=== PATIENT | female | born 1980 | race Caucasian/White ===

== ENCOUNTER 2020-08-13 18:36 | Emergency (ER) | payer OTHER, SELFPAY ==
--- NOTE | 2020-08-13 19:43 | RAD REPORT ---
EXAM DESCRIPTION: CT - Stone Protocol - 08/13/2020 7:23 pm CLINICAL HISTORY: left flank pain COMPARISON: No comparisons TECHNIQUE: Axial 3 mm thick images were obtained without oral or IV contrast. The gudez-ka-ecsw span s the entirety of the system including uppermost abdomen and lung bases. All CT scans are performed using dose optimization technique as appropriate and may include automated exposure control or mA/KV adjustment according to patient size. FINDINGS: Mild hydronephrosis of the left side pelvis and calices present secondary to a 5 millimete r left UPJ stone. No other obstructing calculi. No right-sided hydronephrosis. Patient has moderate s everity bilateral medullary nephrocalcinosis No suspicious renal masses. Isodense masses and pyelonep hritis are not excluded on a stone protocol CT scan. No significant adrenal finding. No urinary bladd er suspicious finding. Lobulated uterus noted. No gross ovarian abnormality seen. Uterus and ovaries are isodense to adjacent non-opacified bowel limiting overall pelvic assessment. Imaged portions of the liver, spleen and pancreas show no suspicious findings on non-contrast imaging . No gallbladder or biliary tree abnormality identified. No suspicious bowel findings. Appendix is normal. Moderate stool volume seen throughout much of the c olon. No hernia, mass or bulky lymphadenopathy noted. Abdominal plasty surgical changes are evident. No blaire e air, free fluid or inflammatory stranding. No significant bony abnormality. IMPRESSION: Mild left-sided hydronephrosis secondary to a 5 mm left UPJ stone. Moderate severity bilateral medullary nephrocalcinosis. Isodense masses and pyelonephritis are not excluded on stone protocol technique. No acute GI process identifiable. Uterus is prominent and may contain small fibroids. Ovaries are not clearly distinguishable from the adjacent non-opacified isodense bowel.
[2020-08-13 19:54] LABS: Absolute Lymphocytes (CBC) 1.9 K/uL (0.7-4.9); Basophils % 0.5 % (0-1.3); Hematocrit 36.9 % (36.0-45.0); Lymphocytes % 14.4 % (15.3-44.8); MPV 9.3 fL (7.6-11.3); RBC Red Blood Cell Count 4.24 M/uL (3.86-4.86)
[2020-08-13] MEDS ORDERED: ONDANSETRON 4 MG/2 ML VIAL ONE (19:58)
[2020-08-13] MEDS ORDERED: KETOROLAC 30 MG/ML INJ ONE (19:58)
[2020-08-13] MEDS ORDERED: NA CHLORIDE 0.9% 1,000 ML ONE (19:59)
[2020-08-13 20:13] LABS: Urine Blood 3+ (NEG); Urine Glucose NEGATIVE (NEG); Urine Protein 1+ (NEG); Urine Specific Gravity >1.030 (1.005-1.030); Urine pH 6.5 (5.0-7.0)
[2020-08-13] MEDS ORDERED: TAMSULOSIN 0.4 MG SR CAP ONE (20:47)
[2020-08-13] MEDS ORDERED: MAGNESIUM SULFATE 1 gm IVPB 1 GM/100 ML BAG IV ONE (20:48)
[2020-08-13] MEDS ORDERED: CEFTRIAXONE/SWI 1gm 1 GM/10 ML SYR ONE (20:48)
[2020-08-13 21:05] LABS: ALT/SGPT 23 U/L (12-78); AST/SGOT 16 U/L (15-37); Albumin 4.2 g/dL (3.4-5.0); BUN Blood Urea Nitrogen 18 mg/dL (7-18); Bicarbonate 30 mmol/L (21-32); Bilirubin Direct < 0.1 mg/dL (0-0.2); Bilirubin Total 0.3 mg/dL (0.2-1.0); Glucose Level 145 mg/dL (74-106); Lipase 100 U/L (73-393); Potassium 4.6 mmol/L (3.5-5.1); Protein, Total 7.7 g/dL (6.4-8.2); Sodium Level 142 mmol/L (136-145)
[2020-08-13 21:06] LABS: Alkaline Phosphatase ND U/L (45-117)
[2020-08-13 21:26] LABS: Urine Bacteria <20 /HPF (<20); Urine Mucus 1+ /HPF (NONE SEEN); Urine RBC >50 /HPF (NONE SEEN)
--- NOTE | 2020-08-13 21:26 | ER ---
Nurse's Notes [facility] Name: Naomi Garcia Age: 40 yrs Sex: Female : 1980 Arrival Date: 08/13/2020 Time: 18:39 Bed 4 Private MD: Diagnosis: Calculus of ureter-left Presentation: 08/13 18:56 Chief complaint: Patient states: L flank pain for 1 day. + N/V. Coronavirus screen: ll1 Client denies travel out of the [place] in the last 14 days. At this time, the client does not indicate any symptoms associated with coronavirus-19. Ebola Screen: Patient denies travel to an Ebola-affected area in the 21 days before illness onset. Initial Sepsis Screen: Does the patient meet any 2 criteria? No. Patient's initial sepsis screen is negative. Does the patient have a suspected source of infection? Yes: Acute abdominal pain. Risk Assessment: Do you want to hurt yourself or someone else? Patient reports no desire to harm self or others. Onset of symptoms was August 13, 2020. 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 - Social history:: Smoking status: Patient denies any tobacco usage or history of. Screenin:15 Abuse screen: Denies threats or abuse. Denies injuries from another. Nutritional wh screening: No deficits noted. Tuberculosis screening: No symptoms or risk factors identified. Fall Risk None identified. Assessment: 19:15 General: Appears in no apparent distress. uncomfortable, Behavior is calm, cooperative, wh appropriate for age. Pain: Complains of pain in left lower quadrant Pain radiates to back Pain currently is 5 out of 10 on a pain scale. Neuro: Level of Consciousness is awake, alert, obeys commands, Oriented to person, place, time, situation, Appropriate for age. Cardiovascular: Heart tones S1 S2. Respiratory: Airway is patent Respiratory effort is even, unlabored, Respiratory pattern is regular, symmetrical, Breath sounds are clear bilaterally. GI: Bowel sounds present X 4 quads. Abd is soft and non tender X 4 quads. Reports lower abdominal pain, nausea. : No signs and/or symptoms were reported regarding the genitourinary system. EENT: No signs and/or symptoms were reported regarding the EENT system. Derm: Skin is intact, is healthy with good turgor, Skin is pink, warm \T\ dry. normal. Musculoskeletal: Circulation, motion, and sensation intact. 20:15 Reassessment: Patient appears in no apparent distress at this time. No changes from previously documented assessment. Patient and/or family updated on plan of care and expected duration. Pain level reassessed. Patient is alert, oriented x 3, equal unlabored respirations, skin warm/dry/pink. 21:30 Reassessment: Patient appears in no apparent distress at this time. Patient and/or wh family updated on plan of care and expected duration. Pain level reassessed. Patient is alert, oriented x 3, equal unlabored respirations, skin warm/dry/pink. Vital Signs: 18:56 BP 126 / 81; Pulse 61; Resp 16; Temp 97.7; Pulse Ox 98% ; Weight 58.97 kg; Height 5 ft. ll1 0 in. (152.40 cm); Pain 10/10; 20:00 BP 132 / 86; Pulse 91; Resp 18; Pulse Ox 98% on R/A; wh 21:30 BP 126 / 89; Pulse 84; Resp 18; Pulse Ox 99% on R/A; wh 18:56 Body Mass Index 25.39 (58.97 kg, 152.40 cm) ll1 ED Course: 18:39 Patient arrived in ED. mr 18:57 Triage completed. ll1 18:57 Arm band placed on. ll1 18:59 Cali Pal PA is PHCP. cp 18:59 Cali Quintero MD is Attending Physician. cp 19:14 Blake Burton, POLLO is Primary Nurse. wh 19:15 Patient has correct armband on for positive identification. Placed in gown. Bed in low wh position. Call light in reach. Side rails up X 1. Pulse ox on. NIBP on. 19:23 CT Stone Protocol In Process Unspecified. EDMS 19:45 Inserted saline lock: 20 gauge in left antecubital area, using aseptic technique. Blood wh collected. 21:24 Yg Rojas MD is Referral Physician. 21:43 No provider procedures requiring assistance completed. IV discontinued, intact, bleeding controlled, No redness/swelling at site. Administered Medications: 20:10 Drug: NS 0.9% 1000 ml Route: IV; Rate: 1 bolus; Site: left antecubital; 21:45 Follow up: Response: No adverse reaction; IV Status: Completed infusion 20:12 Drug: TORadol - Ketorolac 15 mg Route: IVP; Site: left antecubital; 21:44 Follow up: Response: No adverse reaction; Pain is decreased 20:14 Drug: Zofran (Ondansetron) 4 mg Route: IVP; Site: left antecubital; 21:45 Follow up: Response: No adverse reaction; Nausea is decreased 20:31 Drug: Flomax 0.4 mg Route: PO; 21:44 Follow up: Response: No adverse reaction 20:33 Drug: Rocephin - (cefTRIAXone) 1 grams Route: IVPB; Infused Over: 30 mins; Site: left antecubital; 21:44 Follow up: Response: No adverse reaction; IV Status: Completed infusion 20:35 Drug: Magnesium Sulfate 1 grams Route: IVPB; Infused Over: 1 hrs; Site: left antecubital; 21:44 Follow up: Response: No adverse reaction; IV Status: Completed infusion Outcome: 21:25 Discharge ordered by . 21:43 Discharged to home ambulatory. 21:43 Condition: stable 21:43 Discharge instructions given to patient, Instructed on discharge instructions, follow up and referral plans. no drinking with medication, no driving heavy equipment, medication usage, POC Demonstrated understanding of instructions, follow-up care, medications, POC Prescriptions given X 4. 21:45 Patient left the ED. Signatures: Dispatcher [employer] CLEMENTEPA Tiffanie Gomes Corey, PA PA cp Blake Burton RN RN Leonard Yost RN RN ll1
--- NOTE | 2020-08-13 21:26 | EDPHYS ---
Physician Documentation [facility] Name: Naomi Garcia Age: 40 yrs Sex: Female : 1980 Arrival Date: 08/13/2020 Time: 18:39 Bed 4 Private MD: CLEMENTE Physician Cali Quintero HPI: 08/13 19:15 This 40 yrs old Female presents to ER via Ambulatory with complaints of cp Abdominal Pain, Back Pain. 19:15 The patient complains of pain in the left flank. The pain does not radiate. Onset: The cp symptoms/episode began/occurred suddenly, today. 19:15 Associated signs and symptoms: Pertinent positives: nausea, Pertinent negatives: cp diarrhea, fever, pain radiating to the lower extremities. Severity of pain: in the emergency department the pain is unchanged despite home interventions. The patient has not experienced similar symptoms in the past. 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 - Social history:: Smoking status: Patient denies any tobacco usage or history of. ROS: 19:20 Back: Positive for flank pain, on the left. cp 19:20 Eyes: Negative for injury, pain, redness, and discharge. cp 19:20 Constitutional: Negative for body aches, chills, fever. 19:20 Respiratory: Negative for cough, shortness of breath, wheezing. 19:20 Abdomen/GI: Positive for nausea, Negative for diarrhea, constipation, active vomiting. 19:20 : Negative for urinary symptoms. 19:20 Neuro: Negative for altered mental status, headache, weakness. 19:20 All other systems are negative. Exam: 19:25 Head/Face: Normocephalic, atraumatic. cp 19:25 Constitutional: The patient appears in no acute distress, alert, awake, non-toxic, well developed, well nourished, uncomfortable. 19:25 Eyes: Periorbital structures: appear normal, Conjunctiva: normal, no exudate, no injection, Sclera: no appreciated abnormality, Lids and lashes: appear normal, bilaterally. 19:25 ENT: External ear(s): are unremarkable, Nose: is normal, Mouth: Lips: moist, Oral mucosa: moist, Posterior pharynx: Airway: no evidence of obstruction, patent. 19:25 Chest/axilla: Inspection: normal, Palpation: is normal, no crepitus, no tenderness. 19:25 Cardiovascular: Rate: normal. 19:25 Respiratory: the patient does not display signs of respiratory distress, Respirations: normal, no use of accessory muscles, no retractions, labored breathing, is not present. 19:25 Abdomen/GI: Inspection: abdomen appears normal, Palpation: soft, in all quadrants, mild abdominal tenderness, in the posterior aspect of left lateral abdomen, anterior aspect of left lateral abdomen and left lower quadrant, rebound tenderness, is not appreciated, involuntary guarding, is not appreciated. 19:25 Skin: no rash present. Vital Signs: 18:56 BP 126 / 81; Pulse 61; Resp 16; Temp 97.7; Pulse Ox 98% ; Weight 58.97 kg; Height 5 ft. ll1 0 in. (152.40 cm); Pain 10/10; 20:00 BP 132 / 86; Pulse 91; Resp 18; Pulse Ox 98% on R/A; wh 21:30 BP 126 / 89; Pulse 84; Resp 18; Pulse Ox 99% on R/A; wh 18:56 Body Mass Index 25.39 (58.97 kg, 152.40 cm) ll1 MDM: 19:02 Patient medically screened. cp 20:00 Differential diagnosis: nephrolithiasis, pyelonephritis, UTI, diverticulitis. 21:25 Data reviewed: vital signs, nurses notes, lab test result(s), radiologic studies, CT cp scan. 21:25 Counseling: I had a detailed discussion with the patient and/or guardian regarding: the historical points, exam findings, and any diagnostic results supporting the discharge/admit diagnosis, lab results, radiology results, to return to the emergency department if symptoms worsen or persist or if there are any questions or concerns that arise at home. Response to treatment: the patient's symptoms have markedly improved after treatment, VSS. Pain markedly improved with meds. Will discharge to home for continued monitoring. 08/13 19:11 Order name: Basic Metabolic Panel 08/13 19:11 Order name: CBC with Diff; Complete Time: 20:51 cp 08/13 19:11 Order name: Hepatic Function; Complete Time: 21:22 cp 08/13 19:11 Order name: Lipase; Complete Time: 21:22 cp 08/13 19:11 Order name: Urine Microscopic Only cp 08/13 19:12 Order name: Basic Metabolic Panel; Complete Time: 21:22 EDMS 08/13 19:11 Order name: CT Stone Protocol; Complete Time: 19:54 cp 08/13 20:06 Order name: Urine Dipstick--Ancillary (enter results); Complete Time: 20:51 mw2 08/13 20:06 Order name: Urine --Ancillary (enter results); Complete Time: 20:51 mw2 08/13 19:11 Order name: IV Saline Lock; Complete Time: 20:08 cp 08/13 19:11 Order name: Labs collected and sent; Complete Time: 20:08 cp 08/13 19:11 Order name: Urine Dipstick-Ancillary (obtain specimen); Complete Time: 20:08 cp 08/13 19:11 Order name: Urine Test (obtain specimen); Complete Time: 20:08 cp Administered Medications: 20:10 Drug: NS 0.9% 1000 ml Route: IV; Rate: 1 bolus; Site: left antecubital; 21:45 Follow up: Response: No adverse reaction; IV Status: Completed infusion 20:12 Drug: TORadol - Ketorolac 15 mg Route: IVP; Site: left antecubital; 21:44 Follow up: Response: No adverse reaction; Pain is decreased wh 20:14 Drug: Zofran (Ondansetron) 4 mg Route: IVP; Site: left antecubital; 21:45 Follow up: Response: No adverse reaction; Nausea is decreased wh 20:31 Drug: Flomax 0.4 mg Route: PO; wh 21:44 Follow up: Response: No adverse reaction 20:33 Drug: Rocephin - (cefTRIAXone) 1 grams Route: IVPB; Infused Over: 30 mins; Site: left antecubital; 21:44 Follow up: Response: No adverse reaction; IV Status: Completed infusion 20:35 Drug: Magnesium Sulfate 1 grams Route: IVPB; Infused Over: 1 hrs; Site: left antecubital; 21:44 Follow up: Response: No adverse reaction; IV Status: Completed infusion Disposition: 03/18 06:49 Co-signature as Attending Physician, Cali Quintero MD I agree with the assessment and [facility] plan of care. Disposition: 08/13/20 21:25 Discharged to Home. Impression: Calculus of ureter - left. - Condition is Stable. - Discharge Instructions: Kidney Stones, Renal Colic. - Prescriptions for Keflex 500 mg Oral Capsule - take 1 capsule by ORAL route every 8 hours for 7 days; 21 capsule. Tylenol- Codeine #3 300-30 mg Oral Tablet - take 2 tablets by ORAL route every 4-6 hours As needed; 20 tablet. Zofran 4 mg Oral Tablet - take 1 tablet by ORAL route every 12 hours As needed; 20 tablet. Flomax 0.4 mg Oral Capsule, Sust. Release 24 hr - take 1 capsule by ORAL route once daily As needed 1/2 hour following the same meal each day; 7 capsule. - Medication Reconciliation Form, Thank You Letter, Antibiotic Education, Prescription Opioid Use, Work release form form. - Follow up: Yg Rojas MD; When: 2 - 3 days; Reason: pain continues. - Problem is new. - Symptoms have improved. Signatures: Dispatcher [employer] EDMS Cali Quintero MD MD cha Page, Corey, PA PA cp Blake Burton RN RN Leonard Yost RN RN ll1 Corrections: (The following items were deleted from the chart) 08/13 21:45 21:25 08/13/2020 21:25 Discharged to Home. Impression: Calculus of ureter - left. Condition is Stable. Forms are Medication Reconciliation Form, Thank You Letter, Antibiotic Education, Prescription Opioid Use. Follow up: Yg Rojas; When: 2 - 3 days; Reason: pain continues. Problem is new. Symptoms have improved. cp
[2020-08-13 22:09] VITALS: TEMP 97.7
[2020-08-13 22:11] VITALS: BP 126/89; O2SAT 99
== END 2020-08-13 21:45 | disposition home or self-care (01) ==
LOC: ER 18:36
DX: N13.2 Hydronephrosis with renal and ureteral calculous obstruction (principal)
CPT/HCPCS: 96365; 85025; 80048; 36415; 81025; 80076; 83690; 76377; 74176; 96375; 99284; J3475; J0696; J7030; J2405; 81003; 81015

== ENCOUNTER 2020-08-17 18:50 | Emergency (ER) | payer OTHER ==
[2020-08-17] MEDS ORDERED: ONDANSETRON 4 MG/2 ML VIAL ONE (19:44)
[2020-08-17] MEDS ORDERED: KETOROLAC 30 MG/ML INJ ONE (19:44)
[2020-08-17] MEDS ORDERED: NA CHLORIDE 0.9% 1,000 ML ONE (19:44)
[2020-08-17 19:53] LABS: Absolute Lymphocytes (CBC) 1.8 K/uL (0.7-4.9); Basophils % 0.6 % (0-1.3); Hematocrit 39.6 % (36.0-45.0); Lymphocytes % 12.8 % (15.3-44.8); RBC Red Blood Cell Count 4.54 M/uL (3.86-4.86)
--- NOTE | 2020-08-17 20:39 | RAD REPORT ---
EXAM DESCRIPTION: CT - Stone Protocol - 08/17/2020 8:01 pm CLINICAL HISTORY: Abdominal pain. COMPARISON: August 13, 2020 TECHNIQUE: Computed axial tomography of the abdomen pelvis was obtained without oral or IV contrast. Lack of IV and oral contrast limits evaluation of solid organs, bowel, and vessels. Coronal reformat david images were obtained and reviewed. All CT scans are performed using dose optimization technique as appropriate and may include automated exposure control or mA/KV adjustment according to patient size. FINDINGS: 5 millimeter calculus within proximal left ureter. Hounsfield unit 1123. Bilateral renal c alculi are present. Medullary sponge kidney suspected. Mild left hydronephrosis is present. The liver, spleen, pancreas and adrenals appear grossly normal There is no evidence of diverticulitis. The appendix appears normal IMPRESSION: 5 millimeter calculus proximal left ureter resulting in mild left hydronephrosis
--- NOTE | 2020-08-17 20:50 | EDPHYS ---
Physician Documentation [facility] Name: Naomi Garcia Age: 40 yrs Sex: Female : 1980 Arrival Date: 08/17/2020 Time: 18:52 Bed 18 Private MD: ED Physician Andrew Lu HPI: 08/17 20:33 This 40 yrs old Female presents to ER via Ambulatory with complaints of kb Kidney Stone- hasnt passed. 20:33 The patient complains of pain in the left flank. The pain radiates to the left lower kb quadrant. Onset: The symptoms/episode began/occurred 5 day(s) ago. Modifying factors: The symptoms are alleviated by nothing. the symptoms are aggravated by nothing. Associated signs and symptoms: The patient has no apparent associated signs or symptoms. Severity of pain: At its worst the pain was severe in the emergency department the pain is unchanged. The patient has not experienced similar symptoms in the past. The patient has been recently seen at the [facility] Emergency Department, last week, for similar complaints labs were performed, CT scan was performed. Pt reports left flank pain that started 5 days ago. Was seen here and diagnosed with a 5mm stone in the left UPJ 4 days ago. States the pain started getting worse yesterday and radiating to LLQ. Denies urinary symptoms, fever. . 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 - Social history:: Smoking status: unknown. ROS: 20:32 Constitutional: Negative for fever, chills, and weight loss, Cardiovascular: Negative kb for chest pain, palpitations, and edema, Respiratory: Negative for shortness of breath, cough, wheezing, and pleuritic chest pain, MS/Extremity: Negative for injury and deformity, Skin: Negative for injury, rash, and discoloration, Neuro: Negative for headache, weakness, numbness, tingling, and seizure. 20:32 Abdomen/GI: Positive for abdominal pain. 20:32 Back: Positive for flank pain, on the left. 20:32 : Negative for urinary symptoms. Exam: 20:32 Constitutional: This is a well developed, well nourished patient who is awake, alert, kb and in no acute distress. Head/Face: Normocephalic, atraumatic. Cardiovascular: Regular rate and rhythm with a normal S1 and S2. No gallops, murmurs, or rubs. No pulse deficits. Respiratory: Respirations even and unlabored. No increased work of breathing, no retractions or nasal flaring. Abdomen/GI: Soft, non-tender. No distention Skin: Warm, dry with normal turgor. Normal color. MS/ Extremity: Pulses equal, no cyanosis. Neurovascular intact. Full, normal range of motion. Neuro: Awake and alert, GCS 15, oriented to person, place, time, and situation. Moves all extremities. Normal gait. 20:32 Back: pain, that is moderate, of the left flank, CVA tenderness, that is moderate, is noted on the left. Vital Signs: 19:20 BP 136 / 97; Pulse 90; Resp 19; Temp 99.2; Pulse Ox 99% ; Weight 58.97 kg; Height 5 ft. rr5 0 in. (152.40 cm); Pain 7/10; 21:00 BP 131 / 70; Pulse 85; Resp 16; Pulse Ox 98% ; rr5 22:14 BP 125 / 75; Pulse 80; Resp 19; Pulse Ox 100% ; rr5 19:20 Body Mass Index 25.39 (58.97 kg, 152.40 cm) rr5 MDM: 19:09 Patient medically screened. kb 20:31 Data reviewed: vital signs, nurses notes. Data interpreted: Pulse oximetry: on room air kb is 99 %. Interpretation: normal. Counseling: I had a detailed discussion with the patient and/or guardian regarding: the historical points, exam findings, and any diagnostic results supporting the discharge/admit diagnosis, lab results, radiology results, the need for outpatient follow up, a urologist, to return to the emergency department if symptoms worsen or persist or if there are any questions or concerns that arise at home. 20:48 ED course: Discussed findings with pt. Pt will call urologist first thing tomorrow. kb Pain is controlled after toradol. . 08/17 19:16 Order name: Basic Metabolic Panel; Complete Time: 20:10 kb 08/17 19:16 Order name: CBC with Diff; Complete Time: 20:14 kb 08/17 19:16 Order name: CT Stone Protocol; Complete Time: 20:40 kb 08/17 19:16 Order name: IV Saline Lock; Complete Time: 19:32 kb 08/17 19:16 Order name: Labs collected and sent; Complete Time: 19:32 kb Administered Medications: 19:45 Drug: NS 0.9% 1000 ml Route: IV; Rate: 1000 ml; Site: right antecubital; rr5 20:30 Follow up: Response: No adverse reaction; IV Status: Completed infusion; IV Intake: rr5 1000ml 19:45 Drug: Zofran (Ondansetron) 4 mg Route: IVP; Site: right antecubital; rr5 21:00 Follow up: Response: No adverse reaction rr5 19:48 Drug: TORadol 30 mg Route: IVP; Site: right antecubital; rr5 21:00 Follow up: Response: No adverse reaction; Pain is unchanged, physician notified rr5 20:59 Drug: Magnesium Sulfate 1 grams Route: IVPB; Infused Over: 30 mins; Site: right rr5 antecubital; 22:15 Follow up: Response: No adverse reaction; IV Status: Completed infusion; IV Intake: rr5 100ml 20:59 Drug: Ackerly 10 mg-325 mg 1 tabs {Note: rass 0.} Route: PO; rr5 22:15 Follow up: Response: No adverse reaction; Pain is decreased; RASS: Alert and Calm (0) rr5 Disposition: 08/18 05:05 Co-signature as Attending Physician, Andrew Lu MD. 7 Disposition: 08/17/20 20:50 Discharged to Home. Impression: Calculus of ureter. - Condition is Stable. - Discharge Instructions: Kidney Stones, [id number]. - Prescriptions for Tylenol- Codeine #3 300-30 mg Oral Tablet - take 2 tablets by ORAL route every 4-6 hours As needed; 16 tablet. Diclofenac Sodium 75 mg Oral Tablet, Delayed Release (E.C.) - take 1 tablet by ORAL route 2 times per day As needed; 30 tablet. - Work release form, Medication Reconciliation Form, Thank You Letter, Antibiotic Education, Prescription Opioid Use form. - Follow up: Emergency Department; When: As needed; Reason: Worsening of condition. Follow up: Private Physician; When: 2 - 3 days; Reason: Recheck today's complaints, Continuance of care, Re-evaluation by your physician. Follow up: Dom Anglin MD; When: Tomorrow; Reason: Recheck today's complaints. Follow up: Yg Rojas MD; When: Tomorrow; Reason: Recheck today's complaints. Signatures: Dispatcher [employer] EDMS Kenia Blackman, TECHNICAL PROGRAM MANAGER-C TECHNICAL PROGRAM MANAGER-CkMigue Villed[place], RN RN rr5 Andrew Lu MD MD [id number] Corrections: (The following items were deleted from the chart) 08/17 20:36 20:33 Pt reports left flank pain that started 5 days ago. Was seen here and diagnosed kb with a 5mm stone in [facility] 4 days ago. States the pain started getting worse yesterday and radiating to LLQ. Denies urinary symptoms, fever. . kb 22:16 20:50 08/17/2020 20:50 Discharged to Home. Impression: Calculus of ureter. Condition is rr5 Stable. Discharge Instructions: Kidney Stones, [id number]. Prescriptions for Tylenol-Codeine #3 300-30 mg Oral Tablet - take 2 tablets by ORAL route every 4-6 hours As needed; 16 tablet, Diclofenac Sodium 75 mg Oral Tablet, Delayed Release (E.C.) - take 1 tablet by ORAL route 2 times per day As needed; 30 tablet. and Forms are Work release form, Medication Reconciliation Form, Thank You Letter, Antibiotic Education, Prescription Opioid Use. Follow up: Emergency Department; When: As needed; Reason: Worsening of condition. Follow up: Private Physician; When: 2 - 3 days; Reason: Recheck today's complaints, Continuance of care, Re-evaluation by your physician. Follow up: Dom Anglin; When: Tomorrow; Reason: Recheck today's complaints. Follow up: Yg Rojas; When: Tomorrow; Reason: Recheck today's complaints. kb
--- NOTE | 2020-08-17 20:50 | ER ---
Nurse's Notes [facility] Name: Naomi Garcia Age: 40 yrs Sex: Female : 1980 Arrival Date: 08/17/2020 Time: 18:52 Bed 18 Private MD: Diagnosis: Calculus of ureter Presentation: 08/17 19:20 Chief complaint: Patient states: I got diagnose with left stone kidney stone last rr5 Tuesday I still having pain and now the pain gets worse. 19:20 Coronavirus screen: Client denies travel out of the [place] in the last 14 days. At this rr5 time, the client does not indicate any symptoms associated with coronavirus-19. Ebola Screen: Patient negative for fever greater than or equal to 101.5 degrees Fahrenheit, and additional compatible Ebola Virus Disease symptoms Patient denies exposure to infectious person. Patient denies travel to an Ebola-affected area in the 21 days before illness onset. Initial Sepsis Screen: Does the patient meet any 2 criteria? No. Patient's initial sepsis screen is negative. Does the patient have a suspected source of infection? No. Patient's initial sepsis screen is negative. Risk Assessment: Do you want to hurt yourself or someone else? Patient reports no desire to harm self or others. Onset of symptoms was August 13, 2020. 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 - Social history:: Smoking status: unknown. Screenin:35 Abuse screen: Denies threats or abuse. Denies injuries from another. Nutritional rr5 screening: No deficits noted. Tuberculosis screening: No symptoms or risk factors identified. Fall Risk IV access (20 points). Total Levy Fall Scale indicates No Risk (0-24 pts). Assessment: 19:35 General: Appears in no apparent distress. uncomfortable, Behavior is calm, cooperative, rr5 appropriate for age. Pain: Complains of pain in left low back Pain currently is 7 out of 10 on a pain scale. Quality of pain is described as aching, Pain began gradually, Is intermittent. Neuro: Level of Consciousness is awake, alert, obeys commands, Oriented to person, place, time, situation. Cardiovascular: Capillary refill < 3 seconds Patient's skin is warm and dry. Respiratory: Airway is patent Respiratory effort is even, unlabored, Respiratory pattern is regular, symmetrical. GI: No signs and/or symptoms were reported involving the gastrointestinal system. : Reports left kidney stone. EENT: No signs and/or symptoms were reported regarding the EENT system. Derm: Skin is intact, is healthy with good turgor, Skin temperature is warm. Musculoskeletal: Capillary refill < 3 seconds. 20:30 Reassessment: Patient appears in no apparent distress at this time. Patient is alert, rr5 oriented x 3, equal unlabored respirations, skin warm/dry/pink. awaiting for results. 21:30 Reassessment: Patient appears in no apparent distress at this time. Patient is alert, rr5 oriented x 3, equal unlabored respirations, skin warm/dry/pink. 22:13 Reassessment: Patient appears in no apparent distress at this time. Patient is alert, rr5 oriented x 3, equal unlabored respirations, skin warm/dry/pink. discharge instruction given and explained without complaints made Patient states symptoms have improved. Vital Signs: 19:20 BP 136 / 97; Pulse 90; Resp 19; Temp 99.2; Pulse Ox 99% ; Weight 58.97 kg; Height 5 ft. rr5 0 in. (152.40 cm); Pain 7/10; 21:00 BP 131 / 70; Pulse 85; Resp 16; Pulse Ox 98% ; rr5 22:14 BP 125 / 75; Pulse 80; Resp 19; Pulse Ox 100% ; rr5 19:20 Body Mass Index 25.39 (58.97 kg, 152.40 cm) rr5 ED Course: 18:52 Patient arrived in ED. as 19:09 Kenia Blackman F[facility]-C is [facility]. kb 19:09 Andrew Lu MD is Attending Physician. kb 19:30 Migue Godwin RN is Primary Nurse. rr5 19:33 Triage completed. rr5 19:35 Arm band placed on. rr5 19:35 Patient has correct armband on for positive identification. Bed in low position. Call rr5 light in reach. Pulse ox on. NIBP on. 19:48 Inserted saline lock: 20 gauge in right antecubital area, using aseptic technique. dh4 Blood collected. Missed attempt(s): 20 gauge in right forearm. 20:01 CT Stone Protocol In Process Unspecified. EDMS 20:50 Dom Anglin MD is Referral Physician. kb 20:50 Yg Rojas MD is Referral Physician. kb 22:15 No provider procedures requiring assistance completed. IV discontinued, intact, rr5 bleeding controlled, No redness/swelling at site. Pressure dressing applied. Administered Medications: 19:45 Drug: NS 0.9% 1000 ml Route: IV; Rate: 1000 ml; Site: right antecubital; rr5 20:30 Follow up: Response: No adverse reaction; IV Status: Completed infusion; IV Intake: rr5 1000ml 19:45 Drug: Zofran (Ondansetron) 4 mg Route: IVP; Site: right antecubital; rr5 21:00 Follow up: Response: No adverse reaction rr5 19:48 Drug: TORadol 30 mg Route: IVP; Site: right antecubital; rr5 21:00 Follow up: Response: No adverse reaction; Pain is unchanged, physician notified rr5 20:59 Drug: Magnesium Sulfate 1 grams Route: IVPB; Infused Over: 30 mins; Site: right rr5 antecubital; 22:15 Follow up: Response: No adverse reaction; IV Status: Completed infusion; IV Intake: rr5 100ml 20:59 Drug: [place] 10 mg-325 mg 1 tabs {Note: rass 0.} Route: PO; rr5 22:15 Follow up: Response: No adverse reaction; Pain is decreased; RASS: Alert and Calm (0) rr5 Intake: 20:30 IV: 1000ml; Total: 1000ml. rr5 22:15 IV: 100ml; Total: 1100ml. rr5 Outcome: 20:50 Discharge ordered by . kb 22:15 Discharged to home ambulatory. rr5 22:15 Condition: stable 22:15 Discharge instructions given to patient, Instructed on discharge instructions, follow up and referral plans. medication usage, Demonstrated understanding of instructions, follow-up care, medications, Prescriptions given X 2. 22:16 Patient left the ED. rr5 Signatures: Dispatcher [employer] EDKenia Craig, Adelaide Schrader Raymond, RN RN rr5 Coleman Segura 4
[2020-08-17] MEDS ORDERED: MAGNESIUM SULFATE 1 gm IVPB 1 GM/100 ML BAG IV ONE (21:08)
[2020-08-17] MEDS ORDERED: HYDROCODONE/APAP 10/325 TAB ONE (21:08)
[2020-08-17 22:25] VITALS: TEMP 99.2
[2020-08-17 22:28] VITALS: BP 125/75; O2SAT 100
== END 2020-08-17 22:16 | disposition home or self-care (01) ==
LOC: ER 18:50
DX: N20.1 Calculus of ureter (principal); E03.9 Hypothyroidism, unspecified; E78.5 Hyperlipidemia, unspecified
CPT/HCPCS: 96365; 96361; 85025; 80048; 36415; 76377; 74176; 96375; 99284; J3475; J7030; J2405

== ENCOUNTER 2020-10-21 12:23 | Day surgery (SDC) | payer OTHER ==
[2020-10-17 15:28] LABS: Protime INR 1.01
[2020-10-17 15:36] LABS: Potassium 3.6 mmol/L (3.5-5.1)
[~2020-10-21 12:23] MED LIST: Gentamicin Inj 120 MG in NA CHLORIDE 0.9% 100 ML IV SCH
--- NOTE | 2020-10-21 13:07 | RAD REPORT ---
EXAM DESCRIPTION: RAD - Abdomen 1 View (KUB) - 10/21/2020 12:47 pm CLINICAL HISTORY: PRE-OP Pending cystoscopy COMPARISON: Stone Protocol dated 08/17/2020 FINDINGS: Bowel gas pattern is non-specific. No obstruction, free air or pneumatosis. No abnormal s tool volume in the colon. Prior CT study showed bilateral medullary nephrocalcinosis. Calcifications seen lower pole of the right kidney. The nephrocalcinosis is not well visualized on CT imaging. Small upper pole calculi on the right are still present. Lower pole right kidney mostly obscured bowel con tent. Prior obstructing calculus on the July examination was at the level of the L4 body. No calcification s seen at that location. It is uncertain if the obstructing calculus has passed or was retrieved. The re is approximately 5 centimeter millimeter calcification left lateral pelvis superior to a phlebolit h. This is potentially a distal left ureteral calculus. No significant bony findings IMPRESSION: A 5 millimeter calcific density left lateral pelvis is seen with no correlate phlebolith on the July CT study. This is potentially the calcification from the July examination migrating in to the pelvis.
[2020-10-21 13:20] LABS: Specific Gravity 1.015 (1.005-1.030)
[2020-10-21] MEDS ORDERED: Ringers Lactate 1,000 ML IV ONE (13:37)
[2020-10-21] MEDS ORDERED: MIDAZOLAM HCL 2 MG/2 ML INJ IV ONE (14:40)
[2020-10-21] MEDS ORDERED: MIDAZOLAM HCL 2 MG/2 ML INJ ONE (14:52)
[2020-10-21] MEDS ORDERED: SUCCINYLCHOLINE 20 MG/ML (10 ML) IV ONE (16:31)
[2020-10-21] MEDS ORDERED: FENTANYL CITR 100 MCG/2 ML ONE (16:42)
[2020-10-21] MEDS ORDERED: propofoL 200 MG/20 ML VIAL IV ONE (16:42)
[2020-10-21] MEDS ORDERED: NA CHLORIDE 0.9% 1,000 ML ONE (16:53)
[2020-10-21] MEDS: AMPICILLIN SODIUM 2 GM in NA CHLORIDE 0.9% 100 ML IVPB SCH ×2 (17:03→17:19)
--- NOTE | 2020-10-21 17:50 | RAD REPORT ---
EXAM DESCRIPTION: RAD - Urethrocystogrphy Retrograde - 10/21/2020 5:38 pm FINDINGS: There were 12 fluoroscopic KUB images obtained during fluoroscopic assisted placement of a left ureteral stent. Fluoro time was 24 seconds.
[2020-10-21] MEDS ORDERED: HYDROCODONE/APAP 5/325 MG TAB PO PRN (17:52)
[2020-10-21] MEDS ORDERED: PHENAZOPYRIDINE 100MG TAB PO ONE (19:00)
[2020-10-21 19:10] VITALS: BP 130/87; TEMP 97; O2SAT 100
--- NOTE | 2020-10-22 01:58 | OP ---
Date of Procedure: 10/21/2020 Surgeon: DEB VILLAFUERTE Preoperative Diagnosis: Left obstructive ureterolithiasis. Postoperative Diagnosis: Left obstructive ureterolithiasis, approximately 6 mm calculus. Principle Procedures: 1. Cystoscopy. 2. Left ureteroscopy with laser lithotripsy. 3. Left retrograde pyelography. 4. Left ureteral stent placement. Date of Procedure: 10/21/2020 Indication For Procedure: Ms. Garcia presented to the Urology Clinic with obstruction from a 5.5 mm calculus present since July. Because she had failed to pass the stone despite not having significant pain, she was counseled on the potential for persistent obstruction present and the need for definitive management to prevent chronic kidney damage. Procedure In Detail: The patient was consented in the preoperative holding area before being transferred to operative suite where general anesthesia was induced. She was given ampicillin and gentamicin IV antimicrobial prophylaxis and pneumo boots were provided for DVT prophylaxis. Her genitalia were prepped using Hibiclens, and she was draped in standard fashion after being placed in the lithotomy position, padded and secured to the table appropriately. The case was begun using a 22-Yemeni rigid cystoscope to traverse the urethra and into the bladder with ease. The bladder was surveyed briefly and no mucosal lesions, foreign bodies, or stones were noted. The trigone was orthotopic in location, and the left ureteral orifice was visible and cannulated using the tip of a 5- Yemeni ureteral access catheter. Spot fluoroscopic imagery did reveal the presence of a radiodensity in the region of the distal ureter. Left retrograde pyelography: Using a 70:30 mixture of Omnipaque and saline, the contrast mixture was injected via the 5-Yemeni ureteral access catheter and did propagate up a relatively nondilated collecting system without any evidence of pelvocaliectasis around the previously seen radiodensity in the mid distal ureter. While no evidence of hydronephrosis was present, given the density within the course of the injected contrast, this likely suggested the persistence of a stone. As a result, I passed a Sensor wire via the 5-Yemeni ureteral access catheter and ran into a point of obstruction in the mid distal ureter. I was able to navigate the Sensor wire with a little effort around the point of obstruction and get it to coil within the upper pole of the kidney. I then passed a dual-lumen catheter over the wire until it reached the point of obstruction associated with the radiodensity previously seen fluoroscopically. Then utilizing a semi-rigid ureteroscope, and pressurized normal saline irrigation, I was able to navigate the ureteroscope into the left distal ureter to the point of obstruction observed where an approximately 6 mm calculus was noted. The stone was somewhat brownish and orange in appearance consistent with likely calcium oxalate monohydrate, and it was similarly hard and dense requiring extra effort with subsequent laser lithotripsy to fragment the stone. Thus, using power setting of 0.8 joules and 8 Hz initially, then increased to 15 Hz, I was able to successfully fragment the calculus to fragments less than 1 mm in diameter. Once the stone was completely fragmented, I searched into the proximal ureter by navigating the ureteroscope proximally and with no additional calculi seen, I removed the ureteroscope. I then backloaded the cystoscope over the indwelling safety wire and passed a 6-Yemeni x 24 cm double-J left ureteral stent into the collecting system with a coil observed fluoroscopically in the upper pole and 1 cystoscopically within the bladder. Her bladder was then decompressed of fluid and urine, and 1 of the stone fragments was collected. Several others remained within the bladder. The patient tolerated the procedure well and without complications. Complications: None. Discharge Disposition: We will have her strain her urine in the recovery to see if she can collect additional stone fragments. These may be sent for chemical analysis if collected. Otherwise, we will have her follow up in the Urology Clinic in about 2 weeks' time for cystoscopy and left ureteral stent extraction. If she is a recurrent stone former, 24-hour urine metabolic profile assessment will be required and arranged at that time to occur about a month later. DEDRA/BEN Voice ID: [id number] Report ID: [id number] COURTNEY
== END 2020-10-21 18:58 | disposition home or self-care (01) ==
LOC: OR 12:23
PROVIDERS: ATTEND Urology
PROC: 0T778DZ Dilation of Left Ureter with Intraluminal Device, Via Natural or Artificial Opening Endoscopic (ICD-10-PCS; 2020-10-21)
PROC: 0TF78ZZ Fragmentation in Left Ureter, Via Natural or Artificial Opening Endoscopic (ICD-10-PCS; principal; 2020-10-21 13:30)
DX: N20.1 Calculus of ureter (principal); N25.89 Other disorders resulting from impaired renal tubular function; Z20.822 Contact with and (suspected) exposure to COVID-19
CPT/HCPCS: 93005; 87088; 87086; 80048; 36415; 81025; 85610; 74018; 74450; 51610; 52356; U0003; J2704; J0330; J1580; J2250 ×2; J3010; J7120; J7030; J0290; 82360; 88300